=== PATIENT | female | born 1980 | race Caucasian/White ===

== ENCOUNTER 2024-03-14 13:31 | Outpatient (RCR) | payer MEDICAID, SELFPAY ==
--- NOTE | 2024-03-14 14:46 | PT.OIERPT ---
PT OP Initial Eval Patient Information Outpatient Physical Therapy Treatment Date: 03/14/24 Visit Reasons: LOW BACK PAIN Medical Diagnosis: M54.50 Treatment Dx #1: Back Pain Date of Onset: 9 years ago Smoking Status Smoking Status: Never smoker Initial Assessment Subjective: Pt is a 43 y/o female reports of chronic back pain with left radicular symptoms down the leg. Pt mention xray completed but no MRI. Pt has limitation with work duties, chores, self care, lifting, standing, walking, and performing recreational activities. Objective: L/S AROM: all motions are WFL except pain with end range extension Hip PROM: all motions are WNL Hip MMTs: grossly 3+/5 Muscle Length Hs tightness L>R Palpation: TTP and hypomobile L3-L4 facets Assessment: Pt demonstrate back pain with mobility deficits leading to difficulty with ADLs. Pt will attempt physical therapy if pain persist Pt will be refer back to provider for further consultation. Short Term and Associate Account Manager Goals 1) Increase L/S AROM WNL in 6 wks to be able to perform chores 2) Decrease back pain to 2/10 in 6 wks to be able to sit and stand more than 30 mins 3) Increase core strength WFL in 6 wks to be able to perform recreational activities 4) Increase hip MMTs grossly to 4-/5 in 6 wks to be able to walk more than 30 mins 5) Indep with HEP Treatment Plan 1) Manual Therapy 2) Therapeutic Activities 3) Therapeutic Exercises 4) Modalities (ice, heat, traction) Frequency and Duration: 2 x wk for 6 wks Certification Dates: 03/14/24 to 06/14/24 Procedure Charges OP PT Eval Mod Complex 30 minutes: Yes
== END 2024-03-18 23:59 | disposition home or self-care (01) ==
LOC: CPTX 13:31
PROVIDERS: PCP Family Medicine; Referring Provider Family Medicine; Visit Provider Family Medicine
DX: M54.50 Low back pain, unspecified (principal); G89.29 Other chronic pain
CPT/HCPCS: 97162

== ENCOUNTER 2024-04-10 08:30 | Outpatient (RCR) | payer MEDICAID, SELFPAY ==
--- NOTE | 2024-03-21 13:00 | PT.ODAYNRPT ---
PT Outpatient Daily Note OP Daily Note Outpatient Physical Therapy Treatment Date: 03/21/24 Visit Reasons: LOW BACK PAIN Subjective: Pt c/o LBP. Objective: Please see flow sheet for ther ex list. Assessment: Pt tolerated interventions with minimal discomfort. Plan: Continue with POC. Length of Time (minutes) of Treatment: 30 Minutes Procedure Charges Therapeutic Exercise 30 minutes: Yes
--- NOTE | 2024-03-24 12:49 | PT.ODAYNRPT ---
PT Outpatient Daily Note OP Daily Note Outpatient Physical Therapy Treatment Date: 03/24/24 Visit Reasons: LOW BACK PAIN Subjective: Pt's back continues to hurt. Pt notice some soreness after last session. Objective: Please see flow chart for list of ther ex performed Assessment: heat continues to help patient tolerate supine exercises. Minimal changes reported post PT session Plan: Continue with PT Length of Time (minutes) of Treatment: 30 Minutes Procedure Charges Therapeutic Exercise 30 minutes: Yes
--- NOTE | 2024-03-28 12:56 | PT.ODAYNRPT ---
PT Outpatient Daily Note OP Daily Note Outpatient Physical Therapy Treatment Date: 03/28/24 Visit Reasons: LOW BACK PAIN Subjective: Pt's back is about the same. Pt notice some leg pain the other day. Objective: Please see flow chart for list of ther ex performed Assessment: added nerve floss to exercise program today. Decrease radicular pain post flossing. Plan: Continue with PT Length of Time (minutes) of Treatment: 30 Minutes Procedure Charges Therapeutic Exercise 30 minutes: Yes
--- NOTE | 2024-04-05 08:22 | PT.ODAYNRPT ---
PT Outpatient Daily Note OP Daily Note Outpatient Physical Therapy Treatment Date: 04/05/24 Visit Reasons: LOW BACK PAIN Subjective: Pt reports back pain is worse today. Objective: Please see flow sheet for ther ex list. Assessment: Pt has poor activity tolerance due to pain response today. Pt ambulating with decrease gait speed and poor arm swing. Plan: Continue with POC. Length of Time (minutes) of Treatment: 30 Minutes Procedure Charges Therapeutic Exercise 30 minutes: Yes
--- NOTE | 2024-04-10 09:13 | PT.ODS1RPT ---
PT OP Progress/Discharge Note Date of Service: 04/10/24 Progress Note/DC Note Progress Note/Discharge Note: DC Note Patient Information Visit Reasons: LOW BACK PAIN Medical Diagnosis: M54.50 Treatment Dx #1: Back Pain Service Discharge Date: 04/10/24 Status Subjective: Pt's back is no better and continues to have pain down the leg. Pt mention left LE has intermittent numbness and tingling. Due to pain Pt has limitation with all ADLs. Objective: L/S AROM: all motions are WFL Hip PROM: all motions are WNL Hip MMTs: grossly 3+/5 Assessment: Pt continues to have back pain despite demonstrating normal spinal mobility leading to difficulty with ADLs. Pt will no longer benefit from physical therapy due to minimal progress towards goals. Pt was instructed on HEP last session and educated to continue exercises to maintain overall mobility. Pt performed all exercises safely, thank you for your referrals. Plan: D/C home with HEP and follow up with MD Recommend L/S MRI Procedure Charges Therapeutic Exercise 30 minutes: Yes
== END 2024-04-18 23:59 | disposition home or self-care (01) ==
LOC: CPTX 08:30
PROVIDERS: PCP Family Medicine; Referring Provider Family Medicine; Visit Provider Family Medicine
DX: M54.50 Low back pain, unspecified (principal); R26.2 Difficulty in walking, not elsewhere classified; G89.29 Other chronic pain
CPT/HCPCS: 97110

== ENCOUNTER → 2024-08-21 | Outpatient (CLI) | payer MEDICAID, SELFPAY ==
--- NOTE | 2024-08-21 07:30 | XR_ITS ---
Examination: MRI lumbar spine without contrast Date and time of exam: August 21, 2024 0725 hours INDICATIONS: Low back pain 10 years radiating to the legs Technique: Multiple MRI axial and sagittal sections lumbar spine. Sagittal T2-weighted images, TR 3500, TE 118 T1 weighted transverse sections, TR 688 T8.5, T2-weighted sagittal sections T1 weighted sagittal sections TR 621, TE 30 T2 axial sections, TR 4, 190, TE 84. Findings: Satisfactory alignment lumbar vertebral bodies No lumbar fracture Advanced disc narrowing L5-S1 with reactive bony endplate change Disc desiccation lower 2 lumbar levels L5-S1 5 mm central lumbar disc bulge extending to the left foraminal region with mild left L5 ganglionic compression L4-L5 3 mm central lumbar disc bulge More cephalad levels unremarkable IMPRESSION: L5-S1 5 mm central lumbar disc bulge extending to the left foraminal region with mild left L5 ganglionic compression L4-L5 3 mm central lumbar disc bulge
== END | disposition home or self-care (01) ==
PROVIDERS: Referring Provider Family Medicine; Visit Provider Family Medicine
DX: M51.370 Other intervertebral disc degeneration, lumbosacral region with discogenic back pain only (principal); M51.360 Other intervertebral disc degeneration, lumbar region with discogenic back pain only
CPT/HCPCS: 72148

== ENCOUNTER 2024-10-17 12:15 | Emergency (ER) | payer MEDICAID, SELFPAY ==
[2024-10-17 12:18] VITALS: BMI 31.1
[2024-10-17 13:12] VITALS: BP 128/84; PULSE 70; RESP 18; TEMP 36.6; O2SAT 95
--- NOTE | 2024-10-17 13:15 | EDNOTE_ITS ---
<Statement entered by Ruth Fung MD - 10/27/24 19:28> As co-signing physician, I was present and available for consult prn. I concur with the plan and care as documented by the midlevel provider. ED Animal Bite RME/HPI General Chief Complaint: Animal Bite Stated Complaint: BITE TO RIGHT FOREARM GETTING WORSE SINCE WEDNESDAY Time Seen by Provider: 10/17/24 13:04 Source: patient Arrival date/time: 10/17/24 12:15 44-year-old female with no known medical history presents to the emergency room with a chief complaint of a sore and rash to his right forearm. Patient states has been going on since and has progressively gotten worse. Patient believes it is an insect bite. Mode of arrival: ambulatory Limitations: no limitations Related Data Home Medications ?Medication ?Instructions ?Recorded ?Confirmed albuterol sulfate 90 mcg/actuation 1 inh inhalation QI D 10/07/19 aerosol inhaler Previous Rx's ?Medication ?Instructions ?Recorded ibuprofen 600 mg tablet 600 mg PO QID PRN pain #20 t abs 10/07/19 cephalexin 500 mg capsule 500 mg PO BID 7 days #14 cap s 10/17/24 Allergies Allergy/AdvReac Type Severity Reaction Status Date / Time No Known Allergies Allergy Verified 10/07/19 11:14 Review of Systems Review of Systems Systems Reviewed: All systems reviewed, normal except as documented Constitutional Constitutional: Reports system reviewed and no additional complaints, except as documented, Denies fatigue, Denies fever(s), Denies headache(s) and Denies weakness Eyes Eyes: Reports system reviewed and no additional complaints, except as documented, Denies blurry vision and Denies change in vision ENT Ears, Nose, Mouth, and Throat: Reports system reviewed and no additional complaints, except as documented, Denies otalgia, Denies headache(s), Denies nasal congestion, Denies throat swelling and Denies vertigo Cardiovascular Cardiovascular: Reports system reviewed and no additional complaints, except as documented, Denies chest pain, Denies dyspnea and Denies dyspnea on exertion Respiratory Respiratory: Reports system reviewed and no additional complaints, except as documented, Denies chest congestion, Denies cough, Denies dyspnea, Denies dyspnea on exertion and Denies wheezing Gastrointestinal Gastrointestinal: Reports system reviewed and no additional complaints, except as documented, Denies abdominal pain, Denies cramping, Denies nausea and Denies vomiting Genitourinary Genitourinary: Reports system reviewed and no additional complaints, except as documented Musculoskeletal Musculoskeletal: Reports system reviewed and no additional complaints, except as documented and Denies back pain Integumentary/Breasts Skin/Breast: Reports system reviewed and no additional complaints, except as documented, Reports pruritus, Reports rash and Reports wounds Neurologic Neurologic: Reports system reviewed and no additional complaints, except as documented, Denies confusion, Denies headache(s), Denies lack of coordination, Denies vertigo and Denies weakness Psychiatric Psychiatric: Reports system reviewed and no additional complaints, except as documented, Denies anxiety, Denies confusion, Denies depression, Denies paranoia, Denies suicidal ideation and Denies tactile hallucinations Endocrine Endocrine: Reports system reviewed and no additional complaints, except as documented and Denies fatigue Hematologic/Lymphatic Hematologic/Lymphatic: Reports system reviewed and no additional complaints, except as documented and Denies lymphadenopathy Allergic/Immunologic Allergic/Immunologic: Reports system reviewed and no additional complaints, except as documented, Denies throat swelling, Denies urticaria and Denies wheezing Past Medical History Past Medical History CARDIAC: Negative Congestive Heart Failure RESPIRATORY: Positive Chronic Obstructive Pulmonary Disease (COPD) and Asthma GENITOURINARY: Negative Renal Disease ENDOCRINE: Negative Diabetes Mellitus Type 1 or Diabetes Mellitus Type 2 Surgical History SURGICAL: Positive Tubal Ligation Social History SMOKING STATUS: Current every day smoker ED Exam General Limitations: Present no limitations General appearance: Present alert and in no apparent distress Head Head exam: Present atraumatic Eye Eye exam: Present normal appearance, PERRL and EOMI ENT ENT exam: Present normal exam, normal oropharynx and mucous membranes moist Neck Neck exam: Present normal inspection, full ROM and trachea midline Chest Chest inspection: Present normal inspection and symmetric chest wall rise Respiratory Respiratory exam: Present normal lung sounds bilaterally Cardiovascular Cardiovascular exam: Present regular rate, normal rhythm and normal heart sounds Abdominal Exam Abdominal exam: Present soft and normal bowel sounds Extremities Exam Extremities exam: Present normal inspection and full ROM Expanded Upper Extremity Exam Shoulder exam: Present normal inspection Arm exam: Present normal inspection Elbow exam: Present normal inspection Forearm/Wrist exam: Present normal inspection Hand exam: Present normal inspection Vascular exam: Normal capillary refill Back Exam Back exam: Present normal inspection and full ROM Neurological Exam Neurological exam: Present alert, oriented X3 and CN II-XII intact Psychiatric Psychiatric exam: Present normal affect and normal mood Skin Skin exam: Present warm, dry, intact and normal color Expanded Skin Exam Type of lesion: Present bite/sting Distribution: Present RUE Description: Present tenderness, erythematous and swelling Body image: 2 1. 1 cm erythemic circular rash that is slightly raised Course Quality Measures none Vital Signs Vital signs: Vital Signs Temperature 97.9 F 10/17/24 13:12 Pulse Rate 70 10/17/24 13:12 Respiratory Rate 18 10/17/24 13:12 Blood Pressure 128/84 10/17/24 13:12 Pulse Oximetry (%) 95 10/17/24 13:12 Oxygen Delivery Method Room Air 10/17/24 13:12 Animal Bite MDM Narrative MDM Narrative:: 44-year-old female with no known medical history presents to the emergency room with a chief complaint of a sore and rash to his right forearm. Patient states has been going on since and has progressively gotten worse. Patient believes it is an insect bite. Patient is hemodynamically stable and in no apparent distress Patient states this rash has been going on for the last 5 days and has not gone away. Patient states she believes this rash was from an insect bite. The rash is about 1 cm in diameter it is erythemic itchy and a little raised. Antibiotics were sent to the patient's pharmacy Patient was discharged and educated to follow-up with primary care provider in the next 24 to 48 hours and return to the emergency room for any evidence of worsening signs or symptoms Patient data External records reviewed:: [facility] previous records Clinical information provided by:: patient Social determinants that could affect healthcare access:: none Patient has the following chronic illnesses:: No chronic illness How is presenting disease/condition affected by chronic disease/condition?: no chronic disease Evaluation data The following diagnostics were reviewed and interpreted by me:: lab results and radiology exam(s) Lab and/or radiology exams considered but not ordered:: Labs and radiology exams considered and ordered Interpretation Summary: N/A Medications / Prescriptions Medications or Prescriptions considered but not ordered:: No medication given Medication administrations:: Rx given Consultations Consultation(s) initiated? (list below): No Diagnosis Differential diagnosis animal bite: bite by animal, cat bite, dog bite and other (Insect bite) Most likely diagnosis given after review of the tests above:: Insect bite Admission Indicated Admission indicated?: not indicated Admission Request Was there a request for admission?: No Disposition Plan Disposition Plan: Discharge Discharge Attestation Discharge Attestation: The patient and all family members were given an opportunity to ask questions and understood the discharge instructions. Discharge instructions specifically effects, indications for sooner follow up or return to the emergency department, and the expected course of current diagnosis. Patient condition: Stable Discharge Plan Plan Patient Disposition: HOME (Self Care) Discharge Disposition comment: Stable Prescriptions/Referrals Prescriptions/Med Rec: New cephalexin 500 mg capsule 500 mg PO BID 7 Days Qty: 14 0RF No Action ibuprofen 600 mg tablet 600 mg PO QID PRN (Reason: pain) Qty: 20 0RF albuterol sulfate 90 mcg/actuation HFA aerosol inhaler 1 inh IH QID Problem List Clinical Impression: Insect bite Patient/Caregiver Discharge Instructions Education Materials: ED Insect Bite Additional Instructions: Please follow-up with your primary care provider in the next 24 to 48 hours Antibiotics sent to your pharmacy please pick it up and take as indicated For any evidence of worsening signs or symptoms return to the emergency room immediately Print Language: Mexican Stand Alone Forms: Radha Award Info., Patient Portal Info Letter PA/FLOWER MACHINE OPERATOR Supervising Physician PA/OTIS Supervising Physician: Dr. FUNG
== END 2024-10-17 13:22 | disposition home or self-care (01) ==
LOC: SERX 13:21
PROVIDERS: Emergency Provider Emergency Medicine; PCP Family Medicine
DX: S50.861A Insect bite (nonvenomous) of right forearm, initial encounter (principal); W57.XXXA Bitten or stung by nonvenomous insect and other nonvenomous arthropods, initial encounter
CPT/HCPCS: 99281

== ENCOUNTER 2025-03-14 22:07 | Emergency (ER) | payer MEDICAID, SELFPAY ==
[2025-03-14 22:08] VITALS: BP 118/82; PULSE 72; RESP 18; TEMP 36.8; O2SAT 95
--- NOTE | 2025-03-14 22:33 | PD.EDURI ---
Upper Respiratory Inf. RME/HPI General Chief Complaint: Dental/Oral/Throat Stated Complaint: SORE THROAT Time Seen by Provider: 03/14/25 22:29 Arrival date/time: 03/14/25 22:07 44F with history of asthma presents to ED with 3 days of sore throat and 1 day of cough. Limitations: no limitations Related Data Home Medications ?Medication ?Instructions ?Recorded ?Confirmed albuterol sulfate 90 mcg/actuation 1 inh inhalation QID 10/07/19 aerosol inhaler Previous Rx's ?Medication ?Instructions ?Recorded ibuprofen 600 mg tablet 600 mg PO QID PRN pain #20 tabs 10/07/19 Allergies Allergy/AdvReac Type Severity Reaction Status Date / Time No Known Allergies Allergy Verified 03/14/25 22:08 Review of Systems Review of Systems Systems Reviewed: All systems reviewed, normal except as documented ENT Ears, Nose, Mouth, and Throat: Reports as per HPI and Reports sore throat Respiratory Respiratory: Reports as per HPI and Reports cough Past Medical History Past Medical History CARDIAC: Negative Congestive Heart Failure RESPIRATORY: Positive Chronic Obstructive Pulmonary Disease (COPD) and Asthma GENITOURINARY: Negative Renal Disease ENDOCRINE: Negative Diabetes Mellitus Type 1 or Diabetes Mellitus Type 2 Surgical History SURGICAL: Positive Tubal Ligation Social History SMOKING STATUS: Never smoker ED Exam General Limitations: Present no limitations General appearance: Present alert and in no apparent distress Head Head exam: Present atraumatic ENT ENT exam: Present mucous membranes moist Expanded ENT Exam Throat exam: Present tonsillar erythema; Absent tonsillomegaly, tonsillar exudate, R peritonsillar mass, L peritonsillar mass or muffled voice Neck Neck exam: Present normal inspection, full ROM and trachea midline Chest Chest inspection: Present normal inspection and symmetric chest wall rise Neurological Exam Neurological exam: Present alert and oriented X3 Psychiatric Psychiatric exam: Present normal affect and normal mood Skin Skin exam: Present warm, dry, intact and normal color Course Quality Measures none Orders Category Date Time Status Strep A Rapid Stat Lab 03/14/25 22:30 Completed Dexamethasone Inj [Decadron Inj] Med 03/14/25 23:16 Discontinued 10 mg PO X1 ONE Vital Signs Vital signs: Vital Signs Temperature 98.2 F 03/14/25 22:08 Pulse Rate 72 03/14/25 22:08 Respiratory Rate 18 03/14/25 22:08 Blood Pressure 118/82 03/14/25 22:08 Pulse Oximetry (%) 95 03/14/25 22:08 Oxygen Delivery Method Room Air 03/14/25 22:08 O2 at 95% on RA and WNLs Upper Respiratory Infection MDM Narrative MDM Narrative:: 44F with history of asthma presents to ED with 3 days of sore throat and 1 day of cough. Physical exam reveals red oropharynx but normal WOB. Patient is afebrile, calm, and alert. Swabs neg. Meds and group counselor given. Patient data External records reviewed:: [facility] previous records Clinical information provided by:: patient Social determinants that could affect healthcare access:: none Patient has the following chronic illnesses:: asthma How is presenting disease/condition affected by chronic disease/condition?: exacerbated by Evaluation data The following diagnostics were reviewed and interpreted by me:: lab results Lab and/or radiology exams considered but not ordered:: ordered Interpretation Summary: above Medications / Prescriptions Medications or Prescriptions considered but not ordered:: ordered Medication administrations:: Medication Administration History Discontinued Medications Dexamethasone Sodium Phosphate (Dexamethasone Sod Phos Inj 10 Mg/Ml Vial) 10 mg PO X1 ONE Stop: 03/14/25 23:17 Last Admin: 03/14/25 23:30 Dose: 10 mg Documented By: OA above Consultations Consultation(s) initiated? (list below): No Diagnosis Upper Respiratory Differential Diagnosis: upper respiratory infection, croup, otitis media, sinusitis, viral infection, bronchitis, influenza and pharyngitis Most likely diagnosis given after review of the tests above:: URI Admission Indicated Admission indicated?: not indicated Admission Request Was there a request for admission?: No Disposition Plan Disposition Plan: Discharge Discharge Attestation Discharge Attestation: The patient and all family members were given an opportunity to ask questions and understood the discharge instructions. Discharge instructions specifically effects, indications for sooner follow up or return to the emergency department, and the expected course of current diagnosis. Patient condition: Stable Discharge Plan Plan Patient Disposition: HOME (Self Care) Discharge Disposition comment: Stable Prescriptions/Referrals Prescriptions/Med Rec: No Action ibuprofen 600 mg tablet 600 mg PO QID PRN (Reason: pain) Qty: 20 0RF albuterol sulfate 90 mcg/actuation HFA aerosol inhaler 1 inh IH QID Referrals: Danny Farooq MD [Primary Care Provider, Family Practice] - In 1 week Problem List Clinical Impression: URI (upper respiratory infection) Patient/Caregiver Discharge Instructions Education Materials: ED URI, Viral, No Abx (Adult) Additional Instructions: Please follow-up with PCP within 24-48 hours and return immediately if symptoms worsen. Ibuprofen/Tylenol can be used simultaneously for greater fever/pain control. Benadryl is good for cough, congestion, and sleep. Keep hydrated. Advance diet as tolerated. Print Language: Chinese Stand Alone Forms: Patient Portal Info Letter PA/OTIS Supervising Physician PA/OTIS Supervising Physician: Dr. Mcgarry
[2025-03-14 23:12] LABS: Strep A Rapid Negative (Negative)
[2025-03-14] MEDS: DEXAMETHASONE SOD PHOS INJ 10 MG/ML VIAL PO (23:30)
== END 2025-03-15 00:13 | disposition home or self-care (01) ==
PROVIDERS: Physician Assistant; Emergency Provider Emergency Medicine; PCP Family Medicine
DX: J06.9 Acute upper respiratory infection, unspecified (principal)
CPT/HCPCS: 87651; 99282; J1100